=== PATIENT | female | born 1960 | race Caucasian/White ===

== ENCOUNTER 2021-05-21 06:54 | Day surgery (SDC) | payer MEDICAID, SELFPAY ==
[2021-05-17 13:00] VITALS: BMI 50.8
[2021-05-17 13:19] VITALS: BMI 50.8
--- NOTE | 2021-05-20 09:32 | P.CONAN_ITS ---
Documented by User: Mayela Santos NP 05/20/21 09:33 HPI - Anesthesia Eval Consult details Narrative: 61yo F for Colonoscopy REPLACED BY [facility] Past Medical History Medical History (Updated 05/17/21 @ 13:15 by Brittni Talley RN) Anxiety and depression Arthritis Asthma BMI 50.0-59.9, adult HTN (hypertension) Smoker Wears dentures Surgical History Surgical History (Updated 05/17/21 @ 13:15 by Brittni Talley RN) Hx of colonoscopy Social History Social History (Updated 05/17/21 @ 13:16 by Brittni Talley RN) Patient Tobacco Use Status: Current everyday Tobacco user Tobacco use type: Cigarette Cigarettes Per Day: 18 Years Smoked: 20 Are you DNR?: No Advance Directives: No Advance Directives Information Provided: Yes Advance Directives on File: No Poor oral hygiene: No (upper denture) Meds Allergies Allergy/AdvReac Type Severity Reaction Status Date / Time No Known Allergies Allergy Verified 05/21/21 07:01 Home Medications Medication Instructions Recorded Confirmed Last Taken Type atenolol 50 mg-chlorthalidone 25 1 tab PO DAILY 05/17/21 05/17/21 Unknown History mg tablet paroxetine HCl 20 mg tablet (Paxil) 20 mg PO DAILY 05/17/21 05/17/21 Unknown History potassium chloride 20 mEq 20 meq PO DAILY 05/17/21 05/17/21 Unknown History tablet,extended release Exam Exam Date and Time: May 20, 2021 0932 Height,Weight and Vital Signs: Height 5 ft 1 in Weight 122.016 kg Assessment and Plan Assessment Anesthesia Assessment: Chart Reviewed Documented by User: Miguel Angel Mosquead MD 05/21/21 17:18 HPI - Anesthesia Eval Consult details Narrative: 61yo F for Colonoscopy Current Smoker REPLACED BY [facility] Past Medical History Medical History (Updated 05/17/21 @ 13:15 by Brittni Talley RN) Anxiety and depression Arthritis Asthma BMI 50.0-59.9, adult HTN (hypertension) Smoker Wears dentures Family History Family history of problems with anesthesia: No Surgical History Surgical History (Updated 05/17/21 @ 13:15 by Brittni Talley RN) Hx of colonoscopy History of Problems with Anesthesia: No Social History Social History (Updated 05/17/21 @ 13:16 by Brittni Talley RN) Patient Tobacco Use Status: Current everyday Tobacco user Tobacco use type: Cigarette Cigarettes Per Day: 18 Years Smoked: 20 Are you DNR?: No Advance Directives: No Advance Directives Information Provided: Yes Advance Directives on File: No Poor oral hygiene: No (upper denture) Meds Allergies Allergy/AdvReac Type Severity Reaction Status Date / Time No Known Allergies Allergy Verified 05/21/21 07:01 Home Medications Medication Instructions Recorded Confirmed Last Taken Type atenolol 50 mg-chlorthalidone 25 1 tab PO DAILY 05/17/21 05/17/21 Unknown History mg tablet paroxetine HCl 20 mg tablet (Paxil) 20 mg PO DAILY 05/17/21 05/17/21 Unknown History potassium chloride 20 mEq 20 meq PO DAILY 05/17/21 05/17/21 Unknown History tablet,extended release Exam Airway Mallampati Class: II TM Dist: >3cm Neck ROM: Full Denture: Upper Loose/Missing/Broken Teeth: Yes Heart: rrr Lungs: distant breath sounds Assessment and Plan Assessment Anesthesia Assessment: Anesthesia Plan Discussed Final Anesthetic Review Family History of Problems with Anesthesia: No History of Problems with Anesthesia: No NPO: Yes ASA Class: III Final Preanesthetic Review: Meds/Allgs Chart Reviewed, Consent Obtained/Reviewed and Anes Risks/Benef Reviewed Patient Risk: High Procedure Risk: Intermediate Anesthetic Plan Anesthetic Plan: MAC: Disposition: Standard PACU
[2021-05-21 07:12] VITALS: BP 157/91; PULSE 86; RESP 16; TEMP 37.1; O2SAT 95
[2021-05-21] MEDS: Lactated Ringers 1,000 ML 100 ML IVCONT (07:22)
--- NOTE | 2021-05-21 08:10 | MHC.SHP ---
Pre-Procedural Eval Section A Date of Service: 05/21/21 Section B Chief Complaint: screening Details of Present Illness: screening Relevant Family History (Specify if Yes): No Relevant Social History: Tobacco Use Present Medications: see Short Stay Collaborative assessment Medical History: No relevant PMH History of Previous Operations: No relevant previous surgery Allergies: Allergies Allergy/AdvReac Type Severity Reaction Status Date / Time No Known Allergies Allergy Verified 05/21/21 07:01 Review of Systems Sugical H&P ROS: Negative: Constitution, Cardiovascular, Respiratory, Neurological, Psychiatric, Hem-Onc, Allergic/Immunologic, Gastrointestinal, Genitourinary, Musculoskeletal, Integumentary, Endocrine and Eyes/Ears/Nose/Throat Exam Surgical H&P Exam: Normal: HEENT, Normal: Heart, Normal: Lungs, Normal: Extremities, Normal: Abdomen, Normal: Skin and Normal: Neurological Plan Diagnosis/Plan: Unchanged I have reviewed the history and physical and performed a pertinent physical examination on my patient. No changes have occurred unless specified.
--- NOTE | 2021-05-21 08:42 | P.BOP_ITS ---
Brief Operative Note Date of Service: 05/21/21 Pre-op diagnosis: screening Post-op diagnosis: same (colon polyps) Surgeon: Merritt Valadez Anesthesia: MAC Was an Fly Rail Operator used for this Procedure?: No Estimated blood loss (mL): 2 Pathology: other (polyps x2) Condition: stable Disposition: PACU
[2021-05-21 08:44] VITALS: BP 129/64; PULSE 82; RESP 16; TEMP 37.6; O2SAT 96
[2021-05-21 08:59] VITALS: BP 109/87; PULSE 70; RESP 20; TEMP 36.1; O2SAT 97
--- NOTE | 2021-05-21 09:43 | OP_ITS ---
SURGEON: Merritt Valadez MD INDICATIONS: Colon cancer screening and prior history of adenomatous colon polyps. PREOPERATIVE DIAGNOSIS: POSTOPERATIVE DIAGNOSIS: PROCEDURE PERFORMED: Colonoscopy to the terminal ileum with snare polypectomy and biopsy. ESTIMATED BLOOD LOSS: COMPLICATIONS: ANESTHESIA: ASSISTANTS: SPECIMENS: MEDICATIONS: Monitored anesthesia care. DESCRIPTION OF PROCEDURE: History and physical were performed. The risks and benefits of the procedure were explained to the patient. An informed consent was obtained. The patient was placed in the left lateral decubitus position. A digital rectal exam was performed and was found to be normal. The Olympus pediatric video colonoscope was introduced into the rectum and advanced to the cecum without difficulty. The cecum was identified by transillumination, palpation, and identification of ileocecal valve. Examination was performed. The scope was removed. She tolerated the procedure well and was returned to recovery area in stable condition. FINDINGS: The terminal ileum was examined and appeared normal. The visualized colonic mucosa was normal. The quality of the prep was good. There was a 6 mm sessile polyp in the right colon, which had the appearance of a small adenoma. This was removed with a cold snare. The snared piece of tissue could not be recovered. The polypectomy site was biopsied and this specimen was sent as right colon polyp. In the sigmoid was a single less than 5 mm polyp at about 25 cm, which was removed with biopsy forceps. Several other hyperplastic appearing polyps were noted in the sigmoid. These were not biopsied. There was mild sigmoid diverticulosis with scattered diverticula throughout the colon and the prep was good. Retroflexed examination showed small internal hemorrhoids. IMPRESSION: Colon polyps. RECOMMENDATION: Follow up the biopsy results. MD JIN Anderson/DARIUSL / [id number]
== END 2021-05-21 09:25 | disposition home or self-care (01) ==
PROVIDERS: PCP Internal Medicine Geriatric Medicine; Visit Provider Internal Medicine Gastroenterology
PROC: 0DJD8ZZ Inspection of Lower Intestinal Tract, Via Natural or Artificial Opening Endoscopic (ICD-10-PCS; CPT 45378; principal; 2021-05-21 08:20)
DX: Z12.11 Encounter for screening for malignant neoplasm of colon (principal); Z86.010 Personal history of colon polyps; K63.5 Polyp of colon; K57.30 Diverticulosis of large intestine without perforation or abscess without bleeding; K64.8 Other hemorrhoids; I10 Essential (primary) hypertension; F32.9 Major depressive disorder, single episode, unspecified; J45.20 Mild intermittent asthma, uncomplicated; Z79.899 Other long term (current) drug therapy; F17.210 Nicotine dependence, cigarettes, uncomplicated
CPT/HCPCS: 45385; 45380; 88305